=== PATIENT | female | born 1940 | race Caucasian/White ===

== ENCOUNTER 2023-06-17 05:54 | Observation (INO) | payer MEDICARE ==
[2023-06-11 15:10] LABS: BASOPHILS # (AUTO) 0.1 X10'3 (0-0.2); BASOPHILS % (AUTO) 0.7 % (0-1); EOSINOPHILS # (AUTO) 0.2 X10'3 (0-0.9); LYMPHOCYTES # (AUTO) 2.1 X10'3 (1.1-4.8); LYMPHOCYTES % (AUTO) 23.3 % (21-51); MEAN CORPUSCULAR HEMOGLOBIN 32.2 PG (27.0-31.0); MEAN CORPUSCULAR HGB CONC 32.4 g/dL (33.0-36.5); MEAN CORPUSCULAR VOLUME 99.4 FL (78-98); MEAN PLATELET VOLUME 7.9 FL (7.4-10.4); MONOCYTES # (AUTO) 0.8 X10'3 (0-0.9); MONOCYTES % (AUTO) 9.4 % (2-12); NEUTROPHILS # (AUTO) 5.8 X10'3 (1.8-7.7); NEUTROPHILS % (AUTO) 64.6 % (42-75); PRE OP HEMATOCRIT 42.3 % (35.0-45.0); PRE OP HEMOGLOBIN 13.7 g/dL (12.0-16.0); PRE OP PLATELET COUNT 365 X10'3 (140-440); PRE OP WHITE BLOOD COUNT 8.9 10'3 (4.8-10.8); RED BLOOD COUNT 4.25 X10'6 (4.20-5.60); RED CELL DISTRIBUTION WIDTH 12.9 % (11.5-14.5)
[2023-06-11 15:53] LABS: PRE OP INR 0.9 INR; PRE OP PROTIME 10.1 SECONDS (9.0-12.0)
[2023-06-11 16:02] LABS: ALBUMIN/GLOBULIN RATIO 1.1 (1.1-1.5); ALKALINE PHOSPHATASE 58 IU/L (46-116); BLOOD UREA NITROGEN 22 MG/DL (7-18); CALCIUM 9.7 MG/DL (8.5-10.1); CHLORIDE 103 MMOL/L (99-107); CREATININE 1.05 MG/DL (0.40-0.90); PRE OP ALT 23 U/L (30-65); PRE OP ANION GAP 11 (8-16); PRE OP AST 19 U/L (10-37); PRE OP GLUCOSE 104 MG/DL (70-104); PRE OP POTASSIUM 4.4 MMOL/L (3.4-5.1); PRE OP SODIUM 142 MMOL/L (135-145); TOTAL CARBON DIOXIDE 28.5 MMOL/L (24-32); TOTAL PROTEIN 7.5 G/DL (6.4-8.2); eGFR 50 ML/MIN
[2023-06-17] VITALS (32 sets, daily range): BP systolic 109–137; BP diastolic 49–78; PULSE 60–101; RESP 10–16; TEMP 97.7–98.4; O2SAT 94–100
[~2023-06-17] VITALS: Ht 165.1 cm; Wt 70.7 kg
[2023-06-17] MEDS: DOCUMENT DATE & TIME OF BETA-BLOCKER PO ONE (04:15)
[2023-06-17] MEDS: cefazolin 2gm/D5W 100mL 100 ML IV ONE (05:30)
[~2023-06-17 05:54] MED LIST: ALEN70TA80 PO; ASPI-83 PO; BETA15CR4; CALCIUM PO; CENTRUM SILVER PO; HYDR12.55 PO; LISI10TA27 PO; PROP10TA10 PO; VITAMIN B12 PO; VITAMIN C PO; VITAMIN D3 PO
[2023-06-17] MEDS: ringers solution, lacted 1,000 ML IV SCH ×3 (06:37→10:03)
[2023-06-17] MEDS: famotidine 20mg tablet PO ONE (06:37)
[2023-06-17] MEDS ORDERED: methylene blue (5mg/ml) 50mg/10ml ampul IV ONE (06:48)
[2023-06-17] MEDS ORDERED: BUPIVACAINE liposomal/PF 13.3 MG/ML vial IM ONE (06:48)
[2023-06-17] MEDS ORDERED: BUPIVAcaine/PF 2.5mg/ml (0.25%) 10ml vial ONE (06:48)
[2023-06-17] MEDS ORDERED: BUPIVAcaine 0.5% inj/PF 30 ML ONE (07:17)
[2023-06-17] MEDS ORDERED: fentaNYL/PF 50MCG/1 ML 2ML syringe ONE (07:19)
[2023-06-17] MEDS ORDERED: midazolam 1 mg/ML 2ml injection ONE (07:19)
[2023-06-17] MEDS ORDERED: LIDOcaine 2% (20mg/ml) 5ml vial ONE (07:20)
[2023-06-17] MEDS ORDERED: dexamethasone sod phosphate 4mg/ml inj. ONE (07:20)
[2023-06-17] MEDS ORDERED: propofol inj 20 ML IV ONE (07:20)
[2023-06-17] MEDS ORDERED: ondansetron/PF 4mg/2ml inj ONE (07:22)
[2023-06-17] MEDS ORDERED: morphine 4 MG/ML inj SYRINge IV PRN (07:25)
[2023-06-17] MEDS ORDERED: ondansetron/PF 4mg/2ml inj IV PRN ×2 (07:25→09:45)
[2023-06-17] MEDS ORDERED: labetalol 20mg/4ml (5mg/ml) syringe IV PRN (07:25)
[2023-06-17] MEDS ORDERED: hydrALAZINE 20mg/ml inj. IV PRN (07:25)
[2023-06-17] MEDS ORDERED: morphine 2 MG/ML inj. syringe IV PRN ×2 (07:25→09:45)
[2023-06-17] MEDS ORDERED: fentaNYL/PF 50MCG/1 ML 2ML syringe IV PRN ×2 (07:25)
[2023-06-17] MEDS ORDERED: sevoflurane 250ml liquid IH ONE (07:40)
[2023-06-17] MEDS ORDERED: acetaminophen 1,000mg/100ml IV 100 ML IV ONE (07:49)
[2023-06-17] MEDS: BUPIVAcaine/PF 2.5mg/ml (0.25%) 10ml vial IJ ONE (08:20)
[2023-06-17] MEDS ORDERED: ePHEDrine 50MG/ML INJ. ONE (09:07)
[2023-06-17] MEDS ORDERED: acetaminophen w/codeine (30MG) #3 tablet PO PRN (09:45)
[2023-06-17] MEDS: ceFAZolin 1GM/D5W- ADD-VANTAGE 50 ML IV SCH (15:54)
[2023-06-18 02:00] VITALS: BP 119/55; PULSE 91; RESP 16; TEMP 98.1; O2SAT 96
[2023-06-18] MEDS: acetaminophen w/codeine (30MG) #3 tablet PO PRN (02:02)
[2023-06-18 06:00] VITALS: BP 105/51; PULSE 83; RESP 17; TEMP 97.7; O2SAT 96
[2023-06-18 08:00] VITALS: RESP 17; O2SAT 96
[2023-06-18 10:00] VITALS: BP 111/50; PULSE 92; RESP 15; TEMP 98; O2SAT 98
== END 2023-06-18 12:20 | disposition home or self-care (01) ==
LOC: PAS 05:54 → ORTHO 4S 09:52
PROVIDERS: ADMIT Surgery; ATTEND Surgery
DX: C50.911 Malignant neoplasm of unspecified site of right female breast (principal); C50.611 Malignant neoplasm of axillary tail of right female breast; Z86.2 Personal history of diseases of the blood and blood-forming organs and certain disorders involving the immune mechanism; Z17.0 Estrogen receptor positive status [ER+]; Z79.899 Other long term (current) drug therapy
CPT/HCPCS: 19303; 36415; 38525; 38792; 80053; 82948; 85025; 85610; 85730; 87081; 93005; 96365; 96366; A6258; C9290; G0378; G0379; J0131; J0690; J1100; J2250; J2405; J2704; J3010; J3490; J7120; Q9968; 88305; 88307; 88342; A4215; A4615; A4618; A6213; A6253; A6449; A7000; C9250; S0020